=== PATIENT | female | born 1955 | race Caucasian/White ===

== ENCOUNTER 2020-11-09 06:11 | Day surgery (SDC) | payer MEDICARE ==
[~2020-11-09] VITALS: Ht 180.3 cm; Wt 95.2 kg
[2020-11-09 07:05] VITALS: BP 138/93
[2020-11-09] MEDS ORDERED: SODIUM CHLORIDE 0.9% 1,000 ML IV SCH (07:30)
[2020-11-09] MEDS ORDERED: LIDOCAINE-MPF 1%, 5ML ONE (07:50)
[2020-11-09 10:15] LABS: GLUCOSE, CSF 58 mg/dL (40-80); TOTAL PROTEIN,CSF 36 mg/dL (15-45)
== END 2020-11-09 12:25 | disposition home or self-care (01) ==
LOC: OUT 06:11
PROVIDERS: ATTEND Psychiatry & Neurology Neurology
DX: G35 Multiple sclerosis (principal); R42 Dizziness and giddiness; I10 Essential (primary) hypertension; Z88.0 Allergy status to penicillin
CPT/HCPCS: 36415; 62328; 82040; 82042; 82784; 82945; 83873; 84157; 86645; 86695; 86696; 86762; 86777; 86778; 87070; 87205; 89051